=== PATIENT | female | born 1970 | race Caucasian/White ===

== ENCOUNTER 2017-12-29 19:25 | Emergency (ER) | payer BC, OTHER ==
[2017-12-29 19:34] VITALS: BP 123/72
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
== END 2017-12-29 20:10 | disposition home or self-care (01) ==
LOC: ED 19:25
DX: S09.90XA Unspecified injury of head, initial encounter (principal); S16.1XXA Strain of muscle, fascia and tendon at neck level, initial encounter; M54.2 Cervicalgia; R51 Headache; V43.52XA Car driver injured in collision with other type car in traffic accident, initial encounter; Y92.9 Unspecified place or not applicable
CPT/HCPCS: 99282

== ENCOUNTER 2018-09-01 20:59 | Observation (INO) | payer BC, OTHER ==
[2018-09-01] MEDS ORDERED: NS 0.9% 1000 ML** 1,000 ML IV ONE (21:20)
[2018-09-01] MEDS ORDERED: Morphine 4 MG/ML VIAL (1 ml) 4 MG/ML VIAL IV ONE (21:21)
[2018-09-01] MEDS ORDERED: Ondansetron INJ* 2 MG/ML VIAL IV ONE (21:21)
[2018-09-01 21:32] LABS: ABS Basophils 0.1 10^3/ul (0-0.2); ABS Eosinophils 0.2 10^3/ul (0-0.6); ABS Lymphocytes 1.7 10^3/ul (1.0-4.8); ABS Monocytes 1.3 10^3/ul (0-0.8); ABS Neutrophils 8.7 10^3/ul (1.5-7.7); Eosinophil % 1.7 %; Hematocrit 40 % (35-47); Hemoglobin 13.9 g/dL (12.0-16.0); Lymphocyte % 14.6 %; Mean Corpuscular HGB Conc 34 g/dL (31-36); Mean Corpuscular Hemoglobin 32 pg (27-31); Mean Corpuscular Volume 94 fL (80-97); Mean Platelet Volume 7.9 fL (7.4-10.4); Platelet Count 285 10^3/uL (150-450); Red Blood Count 4.31 10^6 /uL (3.70-4.87); Red Cell Distribution Width 14 % (10.5-15); White Blood Count 11.9 10^3/uL (3.5-10.8)
[2018-09-01 21:42] LABS: Albumin 4.2 g/dL (3.2-5.2); Calcium 10.3 mg/dL (8.6-10.3); Potassium 4.6 mmol/L (3.5-5.0); Total Bilirubin 0.7 mg/dL (0.2-1.0)
[2018-09-01 21:48] LABS: Albumin/Globulin Ratio 1.4 (1-3); BUN/Creatinine Ratio 12.7 (8-20); C Reactive Protein 39.71 mg/L (<8.01); EGFR African American 94.4 (>60); Globulin 2.9 g/dL (2-4); Total Protein 7.1 g/dL (6.4-8.9)
[2018-09-01 22:53] LABS: Urine Appearance Clear; Urine Bilirubin Negative (Negative); Urine Blood Negative (Negative); Urine Color Yellow; Urine Glucose Negative (Negative); Urine Ketones 1+ (Negative); Urine Nitrite Negative (Negative); Urine Protein Negative (Negative); Urine Urobilinogen Negative (Negative)
[2018-09-01] MEDS ORDERED: Acetaminophen TAB* 325 MG PO PRN (22:56)
[2018-09-01] MEDS ORDERED: Ondansetron INJ* 2 MG/ML VIAL IV PRN (22:56)
[2018-09-01 22:57] LABS: HCG Pregnancy 0.7 mIU/mL
[2018-09-01] MEDS ORDERED: NS 0.9% 1000 ML** 1,000 ML IV SCH (23:00)
[2018-09-01] MEDS ORDERED: ZOSYN 3.375 GM x ONE DOSE over 30 miuntes IVPB ×2 (23:30)
--- NOTE | 2018-09-01 23:30 | ED ---
Abdominal Pain/Female - HPI Summary HPI Summary: Patient complains of diffuse abdominal pain worse in the upper quadrants 2 days. Pain radiates to right shoulder. Associated with nausea and vomiting and diarrhea. Patient states history of same on 3 prior episodes. Abdominal pain is worse with eating, progressive in pain and duration. Worst 6/10. Denies fever, cough, sore throat, CP, change in urine, vaginal symptoms. Medical history is hypothyroid. Abdominal surgical history is none. Last meal at 3 PM. - History of Current Complaint Chief Complaint: EDAbdPain Stated Complaint: ABD PAIN SINCE THURSDAY PER PT Time Seen by Provider: 09/01/18 21:13 Hx Obtained From: Patient Onset/Duration: Gradual Onset, Lasting Days Timing: Constant Severity Initially: Moderate Severity Currently: Moderate Pain Intensity: 6 Pain Scale Used: 0-10 Numeric Location: Diffuse Radiates to: Other - Shoulder Character: Dull, Cramping Aggravating Factor(s): Food Alleviating Factor(s): Nothing Associated Signs and Symptoms: Positive: Decreased Appetite, Nausea, Vomiting Allergies/Adverse Reactions: Allergies Allergy/AdvReac Type Severity Reaction Status Date / Time No Known Allergies Allergy Verified 12/29/17 19:38 PMH/Surg Hx/FS Hx/Imm Hx Endocrine/Hematology History: Reports: Other Endocrine/Hematological Disorders - hypothyroid Cardiovascular History: Denies: Hx Pacemaker/ICD Respiratory History: Denies: Hx Chronic Obstructive Pulmonary Disease (COPD) History: Denies: Hx Dialysis Sensory History: Denies: Hx Legally Blind Opthamlomology History: Denies: Hx Eye Prosthesis EENT History: Denies: Hx Deafness Neurological History: Denies: Hx Dementia Psychiatric History: Denies: Hx Autism Infectious Disease History: No Infectious Disease History: Denies: Traveled Outside the [place] in Last 30 Days - Family History Known Family History: Negative: Renal Disease, Respiratory Disease - Social History Alcohol Use: None Substance Use Type: Reports: None Smoking Status (MU): Never Smoked Tobacco Review of Systems Constitutional: Negative Eyes: Negative ENT: Negative Cardiovascular: Negative Respiratory: Negative Positive: Abdominal Pain, Vomiting, Diarrhea, Nausea Genitourinary: Negative Musculoskeletal: Negative Skin: Negative Neurological: Negative Psychological: Normal All Other Systems Reviewed And Are Negative: Yes Physical Exam - Summary Physical Exam Summary: Tenderness to palpation in all upper quadrants, worse in right upper quadrant. Positive Wilkerson's. No tenderness to palpation in lower quadrants. Lung sounds clear to auscultation bilaterally. RRR. Triage Information Reviewed: Yes Vital Signs On Initial Exam: Initial Vitals Temp Pulse Resp BP Pulse Ox 97.7 F 104 20 146/95 99 09/01/18 21:02 09/01/18 21:02 09/01/18 21:02 09/01/18 21:02 09/01/18 21:02 Vital Signs Reviewed: Yes Appearance: Positive: Well-Appearing Skin: Positive: Warm Head/Face: Positive: Normal Head/Face Inspection Eyes: Positive: Normal ENT: Positive: Normal ENT inspection Neck: Positive: Supple Respiratory/Lung Sounds: Positive: Clear to Auscultation Cardiovascular: Positive: Normal Abdomen Description: Positive: Other: Musculoskeletal: Positive: Normal Neurological: Positive: Normal Psychiatric: Positive: Normal AVPU Assessment: Alert - Ajo Coma Scale Best Eye Response: 4 - Spontaneous Best Motor Response: 6 - Obeys Commands Best Verbal Response: 5 - Oriented Coma Scale Total: 15 Diagnostics - Vital Signs Vital Signs Temp Pulse Resp BP Pulse Ox 09/01/18 23:00 97 98 09/01/18 22:57 74 137/82 98 09/01/18 22:46 73 138/79 99 09/01/18 22:27 75 153/85 97 09/01/18 22:14 82 147/97 99 09/01/18 22:10 16 09/01/18 22:00 80 99 09/01/18 21:58 76 99 09/01/18 21:57 76 147/96 98 09/01/18 21:02 97.7 F 104 20 146/95 99 - Laboratory Lab Results: Lab Results 09/01/18 09/01/18 09/01/18 Range/Units 21:24 21:24 21:24 WBC 11.9 H (3.5-10.8) 10^3/uL RBC 4.31 (3.70-4.87) 10^6 /uL Hgb 13.9 (12.0-16.0) g/dL Hct 40 (35-47) % MCV 94 (80-97) fL MCH 32 H (27-31) pg MCHC 34 (31-36) g/dL RDW 14 (10.5-15) % Plt Count 285 (150-450) 10^3/uL MPV 7.9 (7.4-10.4) fL Neut % (Auto) 72.6 % Lymph % (Auto) 14.6 % Lon[place] % (Auto) 10.5 % Eos % (Auto) 1.7 % Baso % (Auto) 0.6 % Absolute Neuts (auto) 8.7 H (1.5-7.7) 10^3/ul Absolute Lymphs (auto) 1.7 (1.0-4.8) 10^3/ul Absolute Monos (auto) 1.3 H (0-0.8) 10^3/ul Absolute Eos (auto) 0.2 (0-0.6) 10^3/ul Absolute Basos (auto) 0.1 (0-0.2) 10^3/ul Absolute Nucleated RBC 0.0 10^3/ul Nucleated RBC % 0.0 Sodium 137 (135-145) mmol/L Potassium 4.6 (3.5-5.0) mmol/L Chloride 102 (101-111) mmol/L Carbon Dioxide 27 (22-32) mmol/L Anion Gap 8 (2-11) mmol/L BUN 10 (6-24) mg/dL Creatinine 0.79 (0.51-0.95) mg/dL Est GFR ( Amer) 94.4 (>60) Est GFR (Non-Af Amer) 78.0 (>60) BUN/Creatinine Ratio 12.7 (8-20) Glucose 109 H (70-100) mg/dL Lactic Acid 0.8 (0.5-2.0) mmol/L Calcium 10.3 (8.6-10.3) mg/dL Total Bilirubin 0.70 (0.2-1.0) mg/dL AST 21 (13-39) U/L ALT 29 (7-52) U/L Alkaline Phosphatase 58 (34-104) U/L C-Reactive Protein 39.71 H (<8.01) mg/L Total Protein 7.1 (6.4-8.9) g/dL Albumin 4.2 (3.2-5.2) g/dL Globulin 2.9 (2-4) g/dL Albumin/Globulin Ratio 1.4 (1-3) Lipase 10 L (11.0-82.0) U/L Beta HCG, Quant 0.70 mIU/mL Urine Color Urine Appearance Urine pH (5-9) Ur Specific Gifford (1.010-1.030) Urine Protein (Negative) Urine Ketones (Negative) Urine Blood (Negative) Urine Nitrate (Negative) Urine Bilirubin (Negative) Urine Urobilinogen (Negative) Ur Leukocyte Esterase (Negative) Urine Glucose (Negative) 09/01/18 Range/Units 22:45 WBC (3.5-10.8) 10^3/uL RBC (3.70-4.87) 10^6 /uL Hgb (12.0-16.0) g/dL Hct (35-47) % MCV (80-97) fL MCH (27-31) pg MCHC (31-36) g/dL RDW (10.5-15) % Plt Count (150-450) 10^3/uL MPV (7.4-10.4) fL Neut % (Auto) % Lymph % (Auto) % Lon[place] % (Auto) % Eos % (Auto) % Baso % (Auto) % Absolute Neuts (auto) (1.5-7.7) 10^3/ul Absolute Lymphs (auto) (1.0-4.8) 10^3/ul Absolute Monos (auto) (0-0.8) 10^3/ul Absolute Eos (auto) (0-0.6) 10^3/ul Absolute Basos (auto) (0-0.2) 10^3/ul Absolute Nucleated RBC 10^3/ul Nucleated RBC % Sodium (135-145) mmol/L Potassium (3.5-5.0) mmol/L Chloride (101-111) mmol/L Carbon Dioxide (22-32) mmol/L Anion Gap (2-11) mmol/L BUN (6-24) mg/dL Creatinine (0.51-0.95) mg/dL Est GFR ( Amer) (>60) Est GFR (Non-Af Amer) (>60) BUN/Creatinine Ratio (8-20) Glucose (70-100) mg/dL Lactic Acid (0.5-2.0) mmol/L Calcium (8.6-10.3) mg/dL Total Bilirubin (0.2-1.0) mg/dL AST (13-39) U/L ALT (7-52) U/L Alkaline Phosphatase (34-104) U/L C-Reactive Protein (<8.01) mg/L Total Protein (6.4-8.9) g/dL Albumin (3.2-5.2) g/dL Globulin (2-4) g/dL Albumin/Globulin Ratio (1-3) Lipase (11.0-82.0) U/L Beta HCG, Quant mIU/mL Urine Color Yellow Urine Appearance Clear Urine pH 5.0 (5-9) Ur Specific Gifford 1.010 (1.010-1.030) Urine Protein Negative (Negative) Urine Ketones 1+ A (Negative) Urine Blood Negative (Negative) Urine Nitrate Negative (Negative) Urine Bilirubin Negative (Negative) Urine Urobilinogen Negative (Negative) Ur Leukocyte Esterase Negative (Negative) Urine Glucose Negative (Negative) Result Diagrams: 09/01/18 21:24 09/01/18 21:24 Lab Statement: Any lab studies that have been ordered have been reviewed, and results considered in the medical decision making process. Abdominal Pain Fem Course/Dx - Course Course Of Treatment: Patient complains of diffuse abdominal pain worse in the upper quadrants 2 days. Pain radiates to right shoulder. Associated with nausea and vomiting and diarrhea. Patient states history of same on 3 prior episodes. Abdominal pain is worse with eating, progressive in pain and duration. Worst 6/10. Denies fever, cough, sore throat, CP, change in urine, vaginal symptoms. Medical history is hypothyroid. Abdominal surgical history is none. Last meal at 3 PM. Physical exam:Tenderness to palpation in all upper quadrants, worse in right upper quadrant. Positive Wilkerson's. No tenderness to palpation in lower quadrants. Lung sounds clear to auscultation bilaterally. RRR. Vital signs within normal limits. WBC 11.9. Labs otherwise unremarkable. Ultrasound gallbladder positive for cholecystitis. Admitted to surgery Dr. Guevara. - Diagnoses Provider Diagnoses: Cholecystitis Discharge - Sign-Out/Discharge Documenting (check all that apply): Patient Departure Patient Received Moderate/Deep Sedation with Procedure: No - Discharge Plan Condition: Stable Disposition: ADMITTED TO [facility] - Billing Disposition and Condition Condition: STABLE Disposition: Admitted to [facility]
[2018-09-02] MEDS: HYDROmorphone INJ1* 1 MG/ML SYRINGE IV SLOW PU PRN ×5 (01:00→20:08)
[2018-09-02] MEDS: Piperacillin/Tazobactam VIAL*) 3.375 GM in NS 0.9% 100 ML* 100 ML IVPB SCH ×3 (03:57→20:03)
[2018-09-02] MEDS: Levothyroxine TAB* 125 MCG TAB PO SCH ×2 (05:38→08:48)
[2018-09-02] MEDS: Venlafaxine EXT RELEASE CAP* 75 MG PO SCH (08:31)
--- NOTE | 2018-09-02 11:00 | HP ---
AMENDED REPORT NOW INCLUDES DESIGNATED COSIGNER CC: Roberto Dover * DATE OF ADMISSION: 09/01/2018. ATTENDING SURGEON: Dr. Christiano Guevara * (THERON Hanks dictating). CHIEF COMPLAINT: Abdominal pain. HISTORY OF PRESENT ILLNESS: This is a 48-year-old female with onset of upper abdominal pain beginning Thursday evening. She had had some nachos with cheese and jalapenos earlier in the day. She describes pain across her upper abdomen with a bloating and gas-like sensation. There was associated nausea and vomiting times one. She has also felt some fevers and chills. She tossed and turned Thursday night, but was able to go to work Thursday, though left early. Discomfort persisted through Thursday night and then on Thursday pain peaked after she took her usual Effexor with water. Pain level has been as high as 10/ 10, but currently between 6 and 7/10. She has not had any prior similar symptoms. She has not had any prior abdominal surgeries. She has noted some diarrhea over the past couple of weeks that preceded the current symptoms. She has not noticed any particular change in the color of her urine or stool, other than urine being more concentrated. There is no known family history of gallbladder disease, other than an aunt. PAST MEDICAL HISTORY: Anxiety and depression; hypothyroids, on replacement; she also states that she had jaundice secondary to cholestasis of which resolved after delivery. PAST SURGICAL HISTORY: [place] teeth extraction. CURRENT MEDICATIONS: 1. Effexor 150 mg once daily. 2. Levothyroxine 125 mcg once daily. DRUG ALLERGIES: None known. FAMILY HISTORY: Negative for anesthesia problems, bleeding or clotting disorders. SOCIAL HISTORY: The patient is . She is employed as an artist. She denies significant smoking history. She drinks two to three alcoholic drinks per month. She rarely uses any recreational drugs, including marijuana. REVIEW OF SYSTEMS: General: No other acute illness, other than per the HPI. She states that she had intentional weight loss a year or two ago of about 55 pounds which she has maintained. HEENT: No problems reported. Cardiovascular : No chest pain, palpitations or history of heart murmur. Respiratory: No history of asthma, chronic cough, or shortness of breath. GI: As above per HPI , no additions. : No dysuria or hematuria. Endocrine: No diabetes. She is on thyroid replacement. Remainder of review of systems is negative. PHYSICAL EXAMINATION GENERAL: Well-nourished, obese female in mild distress. SKIN: Warm and dry. No suspicious rashes or lesions. VITAL SIGNS: Height 5'3", weight 205 pounds, BMI 36. Temperature 98.3, blood pressure 131/73, pulse 72, respirations 16, room air saturation 95 percent. HEENT: Pupils are equal and round, reactive. EOM's intact. No conjunctival pallor or scleral icterus. Oropharynx: Mucus membranes slightly dry. No intraoral lesions. Teeth in good report. NECK: No lymphadenopathy, thyromegaly, or masses. LUNGS: Clear to auscultation with no rales or wheezes. HEART: Regular rate and rhythm. No murmur noted. ABDOMEN: Bowel sounds are present. Abdomen is obese and soft with moderate tenderness in the right mid abdomen with maximum tenderness in the right upper quadrant. No peritoneal signs. No palpable masses or organomegaly, though exam is limited by body habitus and level of tenderness. EXTREMITIES: No edema. GENITALIA: Not done. RECTAL: Not done. NEUROLOGIC: Grossly intact. LABORATORY DATA: White blood cell count 11,900 with normal differential, hemoglobin 13.9; lactic acid is normal at 0.8, CRP elevated at 40, lipase is normal, as are liver function tests, hCG is negative. Ultrasound showed a 3.4 x 2.5 x 2.8 cm stone in the neck of the gallbladder with sludge as well. Gallbladder wall was measured at 5 mm. Common bile duct was normal in diameter. IMPRESSION: Cholelithiasis with acute cholecystitis. PLAN: The patient was begun on IV Zosyn upon admission. Plan is for laparoscopic cholecystectomy pending OR availability, likely today. The case was discussed with Dr. Herrera and also Dr. Jorge who will likely be the operative surgeon. THERON HANKS [id number]/[facility] #: [id number] G[facility]NET HEALTHDoug
[2018-09-02] MEDS ORDERED: Ondansetron INJ* 2 MG/ML VIAL ONE ×2 (11:50→12:58)
[2018-09-02] MEDS ORDERED: Bupivacaine 0.25% SDV PF* 10 ML VIAL INJ ONE (12:04)
--- NOTE | 2018-09-02 12:34 | PN ---
Progress Note - Progress Note Date of Service: 09/02/18 Note: Surgery Progress Note Please see full H&P dictated by Alfredo Miller. Briefly, patient is a 48 yo F with RUQ abdominal pain for 4 days who presented to the ED last night and was found to have a WBC 11 and US consistent with acute cholecystitis. I discussed the risks, benefits and alternatives of surgery which will be a laparoscopic, possible open cholecystectomy. Risks include but are not limited to bleeding ( which in rare circumstances can require blood transfusion or reoperation), infection (wound, intraabdominal), injury to nearby structures such as the stomach, small bowel, colon, liver and common bile duct. Injury to such structures can require reoperation and further procedures. Other risks include bile leak and anesthetic/perioperative risks. She understands and wishes to proceed.
[2018-09-02] MEDS ORDERED: fentaNYL* 50 MCG/ML 2 ML VIAL (100 MCG VIAL) ONE ×2 (12:43→15:48)
[2018-09-02] MEDS ORDERED: Midazolam* 1 MG/ML 2 ML VIAL (2 MG) ONE (12:43)
[2018-09-02] MEDS ORDERED: Lidocaine 2% PF * 5 ML VIAL ONE (12:58)
[2018-09-02] MEDS ORDERED: Dexamethasone IV* 4 MG/ML 1 ML (4 MG) ONE (12:58)
[2018-09-02] MEDS ORDERED: Succinylcholine* 20 MG/ML 10 ML VIAL ONE (12:58)
[2018-09-02] MEDS ORDERED: Propofol* 10 MG/ML 20 ML BTL ONE (12:58)
[2018-09-02] MEDS ORDERED: Cisatracurium* 2 MG/ML MDV 5 ML ONE (13:12)
[2018-09-02] MEDS ORDERED: Ketorolac INJ* 30 MG/ML 1 ML VIAL ONE (15:29)
[2018-09-02] MEDS ORDERED: Metoclopramide IV* 5 MG/ML 2 ML VIAL ONE (15:29)
[2018-09-02] MEDS ORDERED: Neostigmine Methylsulfate* 1 MG/ML 10 ML VIAL (1 mg/ml) ONE (15:31)
[2018-09-02] MEDS ORDERED: Glycopyrrolate IV* 0.2 MG/ML 1 ML VIAL ONE (15:31)
[2018-09-02] MEDS ORDERED: Phenylephrine 40 MCG/ML SYRINGE ONE (15:33)
[2018-09-02] MEDS ORDERED: DiMENhydriNATE IV* 50 MG/ML VIAL IV PUSH PRN (15:37)
[2018-09-02] MEDS ORDERED: Naloxone* 0.4 MG/ML 1 ML VIAL IV PRN (15:37)
[2018-09-02] MEDS ORDERED: oxyCODONE TAB* 5 MG TAB PO PRN (15:37)
[2018-09-02] MEDS ORDERED: HYDROmorphone INJ1* 1 MG/ML SYRINGE IV PRN (15:37)
[2018-09-02] MEDS ORDERED: D5W 1/2 NS KCl 20 Meq 1000 ML* 1,000 ML IV SCH (16:00)
[2018-09-02] MEDS ORDERED: Propofol* 500 MG/50 ML BTL ONE (16:02)
--- NOTE | 2018-09-02 21:43 | OP ---
DATE OF OPERATION: 09/01/18 - ROOM #339 DATE OF : 72 SERVICE: General Surgery. ATTENDING SURGEON: Pat Jorge MD CAKE MAKER: Kika Rangel NP ANESTHESIOLOGISTS: Dr. Qi Kemp and Dr. Ana Camacho. ANESTHESIA: General endotracheal anesthesia. PRE-OP DIAGNOSIS: Acute cholecystitis. POST-OP DIAGNOSIS: Acute cholecystitis. OPERATIVE PROCEDURE: Laparoscopic cholecystectomy. ESTIMATED BLOOD LOSS: Approximately 50 cc. SPECIMEN: Gallbladder. INDICATIONS FOR SURGERY: Ms. Norton is a 48-year-old female with a history of hypothyroidism, who presented to the emergency room with 4 days of right upper quadrant abdominal pain. She was found to have a white blood cell count of 11 and a right upper quadrant ultrasound consistent with acute cholecystitis. She was admitted to the surgical service, placed on antibiotics, and given informed consent for a laparoscopic possible open cholecystectomy. She understood the risks, benefits, and alternatives of procedure and she wished to proceed. DESCRIPTION OF PROCEDURE: The patient was brought back to the operating room and placed on the operating table in the supine position. Sequential compression devices were placed on the bilateral lower extremities for DVT prophylaxis. Antibiotic with Zosyn was administered prior to incision. General endotracheal anesthesia was induced. The patient's abdomen was prepped and draped in normal sterile fashion and the left arm was tucked. Prior to beginning the procedure, a time-out was performed verifying the patient's name, MR number, and the procedure to be performed. Next, local anesthesia was administered to the left upper quadrant. A Veress needle was placed into the left upper quadrant at Michael's point and a saline drop test was performed, which was satisfactory. Therefore, the abdomen was then insufflated and after initial period of insufflation, the insufflation stopped and the pressures were high with no flow. It was likely that the Veress needle had been dislodged into the abdominal wall. Therefore, it was removed and replaced; however, it was difficult to again obtain an appropriate saline drop test, so decision was made to enter the abdomen using the Optiview technique in the right upper quadrant. Local anesthesia was administered in the right upper quadrant. A small incision was made and then using an optical trocar, the abdomen was entered under direct visualization. All the abdominal wall layers were visualized; and then, once the abdomen was entered, an insufflation was obtained to 15 mmHg. Upon general inspection of the abdominal cavity, there was no apparent injury that had been made upon entering into the right upper quadrant. Examination of the left upper quadrant showed no injury in the left upper quadrant and it was likely that the Veress needle site has been dislodged in the abdominal wall. Therefore, the remaining trocars were placed under direct visualization. A 5-mm trocar was placed above the umbilicus after administering 0.5% Marcaine with local anesthesia. A 12-mm trocar was placed just to the right falciform and an additional 5 mm trocar was placed in the right mid abdomen. The patient was positioned head up and right side up. The gallbladder was noticed to be extremely enlarged, dilated and difficult to grasp. Therefore, the gallbladder was aspirated and approximately 30 cc of dark bilious fluid was removed. The gallbladder became less taut and was able to be grasped. It was grasped at the fundus and lifted up and over the liver with great difficulty given again how large, long and distended it was. There was a very large stone that had been seen on the preoperative ultrasound that was lodged in the infundibulum, but with great care, the infundibulum was grasped and elevated. The peritoneum on either side of the gallbladder was opened with some difficulty, given again how long the gallbladder was and how extended off of the liver for many centimeters. There was a node of Calot that was identified. The cystic artery was noted to be very anterior and eventually the critical view was obtained. The cystic artery was divided using 2 clips distally, and 1 clip proximally, and the cystic duct was also identified and it was posterior, and 2 clips were placed distally, 1 proximally, and then both of these structures were divided. Once this was done, the gallbladder was taken off of the liver with electrocautery and placed into an EndoCatch bag. It was removed from the 12 mm trocar site, which had to be extended quite a bit. After it was removed from the abdominal cavity, the right upper quadrant was irrigated. Hemostasis was obtained at the liver bed and the clips were noted to be in place on the cystic duct and cystic artery, and once this was confirmed, the elongated 12 mm trocar site was closed using interrupted 0 Vicryl sutures in a [id number] fashion; and after this was done, all the trocars were removed under direct visualization. Desufflation was obtained. The skin incisions were closed using 4-0 Monocryl sutures. Sterile dressing was in place and the patient's anesthesia was reversed and she was taken to the PACU in stable condition. At the end of the case, all counts were correct and I was present during the entirety of the case. [id number]/[facility] #: [id number] MTDD
[2018-09-03] MEDS: HYDROmorphone INJ1* 1 MG/ML SYRINGE IV SLOW PU PRN ×2 (01:39→08:37)
[2018-09-03] MEDS: Piperacillin/Tazobactam VIAL*) 3.375 GM in NS 0.9% 100 ML* 100 ML IVPB SCH (04:02)
[2018-09-03] MEDS: Levothyroxine TAB* 125 MCG TAB PO SCH (06:12)
[2018-09-03 07:26] VITALS: BP 113/62
[2018-09-03] MEDS: Venlafaxine EXT RELEASE CAP* 75 MG PO SCH (08:37)
--- NOTE | 2018-09-03 08:50 | PN ---
Progress Note - Progress Note Date of Service: 09/03/18 Note: Surgery Progress Note S: Patient feels better today than before surgery. She has pain but it is much improved since before surgery. No nausea or emesis. Has been ambulating independently. Tolerated CLD. O: Vital Signs - 24 hr 09/02/18 09/02/18 09/02/18 08:51 16:01 16:05 Temperature 99.1 F Pulse Rate 104 104 Respiratory 18 24 24 Rate Blood Pressure (mmHg) O2 Sat by Pulse 88 87 Oximetry 09/02/18 09/02/18 09/02/18 16:10 16:15 16:20 Temperature Pulse Rate 101 105 105 Respiratory 18 25 16 Rate Blood Pressure (mmHg) O2 Sat by Pulse 93 94 95 Oximetry 09/02/18 09/02/18 09/02/18 16:25 16:30 16:35 Temperature Pulse Rate 104 98 101 Respiratory 16 18 18 Rate Blood Pressure (mmHg) O2 Sat by Pulse 95 95 96 Oximetry 09/02/18 09/02/18 09/02/18 16:40 16:51 17:00 Temperature 97.9 F Pulse Rate 88 98 97 Respiratory 20 16 16 Rate Blood Pressure 131/81 (mmHg) O2 Sat by Pulse 97 95 94 Oximetry 09/02/18 09/02/18 09/02/18 17:01 17:16 17:47 Temperature 97.8 F Pulse Rate 98 91 90 Respiratory 18 17 16 Rate Blood Pressure 121/79 113/84 141/71 (mmHg) O2 Sat by Pulse 94 94 99 Oximetry 09/02/18 09/02/18 09/02/18 18:29 19:30 20:00 Temperature 99 F 98.8 F Pulse Rate 102 97 Respiratory 16 18 18 Rate Blood Pressure 150/66 147/71 (mmHg) O2 Sat by Pulse 98 95 Oximetry 09/02/18 09/02/18 09/02/18 20:08 21:08 21:33 Temperature 99 F Pulse Rate 98 Respiratory 20 16 16 Rate Blood Pressure 127/64 (mmHg) O2 Sat by Pulse 96 Oximetry 09/02/18 09/03/18 09/03/18 23:26 01:39 02:45 Temperature 98.3 F Pulse Rate 102 Respiratory 16 20 20 Rate Blood Pressure 116/64 (mmHg) O2 Sat by Pulse 97 Oximetry 09/03/18 09/03/18 09/03/18 03:35 07:25 08:37 Temperature 98.5 F 98.7 F Pulse Rate 77 76 Respiratory 18 16 16 Rate Blood Pressure 123/61 113/62 (mmHg) O2 Sat by Pulse 95 97 Oximetry Levothyroxine TAB* [Synthroid TAB*] 125 mcg PO 0800 12/29/17 [History Confirmed 09/01/18] Venlafaxine CAP (NF) [Effexor CAP (NF)] 150 mg PO DAILY 12/29/17 [History Confirmed 09/01/18] Intake & Output 09/02/18 09/03/18 09/03/18 22:59 06:59 14:59 Intake Total 1310 470 Output Total 700 1000 Balance 610 -530 Intake: IV Fluids 1000 lr 1000 Oral 310 470 Output: Urine 700 1000 Other: # Bowel Movements 0 No new labs Physical exam: Abd: soft, non distended, incisions c/d/i, minimally tender A/P: 48 F POD 1 from lap janae for acute cholecystitis, doing well. - Soft diet - D/C today, return precautions discussed. Patient to follow up with me in 2-3 weeks for post operative appointment
[2018-09-03] MEDS ORDERED: oxyCODONE/Acetamin 5/325 MG* TAB PO PRN ×2 (10:28)
--- NOTE | 2018-09-03 12:31 | DS ---
CC: Roberto Dover * DISCHARGE SUMMARY: DATE OF ADMISSION: 09/01/18 DATE OF DISCHARGE: 09/03/18 ATTENDING PROVIDER: Dr. Jorge * (DICTATED BY THERON FOSTER) HOSPITAL COURSE: Please refer to admission history and physical and operative note for details. The patient was admitted on 09/01/18 with acute cholecystitis and cholelithiasis. She was given IV antibiotics and plans were made for surgery. She was taken to the operating room on 09/02/18, at which time she underwent laparoscopic cholecystectomy with Dr. Jorge. See operative report for details. She was seen in the morning of postoperative day [address] Jorge and myself. She is doing well with pain under good control and tolerating oral diet. She is deemed ready for discharge (see separate note from Dr. Jorge). She will resume her usual home medications. Prescription for Percocet was e- sent to the [facility] outpatient pharmacy. Instructions were reviewed regarding wound care, diet, and activity. She has a followup with our office on 09/10/18. She is discharged to home in good condition. THERON FOSTER [id number]/[facility] #: [id number] [place]OW[place]
== END 2018-09-03 11:50 | disposition home or self-care (01) ==
LOC: ED 20:59 → SSU 22:56
PROVIDERS: ADMIT Surgery; ATTEND Surgery
PROC: 0FT44ZZ Resection of Gallbladder, Percutaneous Endoscopic Approach (ICD-10-PCS; principal; 2018-09-01)
DX: K80.00 Calculus of gallbladder with acute cholecystitis without obstruction (principal); F41.9 Anxiety disorder, unspecified; F32.9 Major depressive disorder, single episode, unspecified; E03.9 Hypothyroidism, unspecified; Z79.899 Other long term (current) drug therapy; Z79.890 Hormone replacement therapy
CPT/HCPCS: 36415; 76705; 80053; 81003; 83605; 83690; 84702; 85025; 86140; 88304; 96361; 96365; 96366; 96375; 96376; 99283; A9270-GY; G0378; J0330; J1100; J1170; J1885; J2250; J2270; J2405; J2543; J2704; J2710; J2765; J3010; J3490

== ENCOUNTER 2021-11-12 08:08 | Inpatient (IN) ==
[~2021-11-12 08:08] MED LIST: Buffered Lidocaine 1% SYRIN 1 ml INTRADERM ONE; Lactated Ringers 1000 ml BAG 1,000 ML IV SCH; Naloxone 0.4 mg VIAL 0.4 mg/ml 1 ml VIAL IV PRN; Prochlorperazine 5 mg/ml 2 ml VIAL (10 mg) IV PRN; ceFAZolin 2 GM PREMIX 2 GM/50 ML BAG ONE
[2021-11-12] MEDS ORDERED: Propofol 10 MG/ML 20 ML BTL ONE ×2 (08:18→14:16)
[2021-11-12] MEDS ORDERED: Buffered Lidocaine 1% SYRIN 1 ml INTRADERM ONE (08:26)
[2021-11-12 09:01] LABS: Rapid COVID-19 Molecular Undetected (Undetected)
[2021-11-12] MEDS ORDERED: ROPIVACAINE 5 MG/ML 30 ML BTL (0.5%) ONE ×2 (09:08→09:56)
[2021-11-12] MEDS ORDERED: Propofol 10 mg/ml 100 ML BTL 0 ML ONE (09:18)
[2021-11-12] MEDS ORDERED: Lidocaine 2% PF 5 ML VIAL ONE (09:45)
[2021-11-12] MEDS ORDERED: Rocuronium 50 mg VIAL 10 mg/ml 5 ml VIAL (50 mg) ONE (09:45)
[2021-11-12] MEDS ORDERED: Midazolam 2 mg/2 ml VIAL 1 mg/ml 2 ml VIAL (2 mg) ONE (11:14)
[2021-11-12] MEDS ORDERED: Ondansetron 4 mg VIAL 2 MG/ML 2 ml VIAL ONE (11:14)
[2021-11-12] MEDS ORDERED: Dexamethasone IV 4 MG/ML VIAL 1 ml VIAL ONE (11:14)
[2021-11-12] MEDS ORDERED: fentaNYL 100 mcg/2 ml 50 MCG/ML VIAL ONE (11:14)
[2021-11-12] MEDS ORDERED: HYDROmorphone 0.5 MG/0.5 ML SYRINGE ONE ×2 (11:47→12:22)
[2021-11-12] MEDS ORDERED: Lactulose 30 ml UDC PO PRN (12:40)
[2021-11-12] MEDS ORDERED: Ondansetron ODT 4 mg TAB 4 MG TAB PO PRN (12:40)
[2021-11-12] MEDS ORDERED: Morphine 2 MG/ML SYRINGE IV PRN (12:40)
[2021-11-12] MEDS ORDERED: Magnesium Hydroxide LIQ 30 ML UDC PO PRN (12:40)
[2021-11-12] MEDS ORDERED: Ondansetron 4 mg VIAL 2 MG/ML 2 ml VIAL IV PRN (12:40)
[2021-11-12] MEDS ORDERED: HYDROmorphone 1 MG/1 ML SYRINGE ONE (14:38)
[2021-11-12] MEDS: HYDROmorphone 1 MG/1 ML SYRINGE IV PRN ×4 (14:39→15:25)
[2021-11-12] MEDS: Lactated Ringers 1000 ml BAG 1,000 ML IV SCH (16:13)
[2021-11-12] MEDS: ceFAZolin 1 GM ADVAN 1 GM in NS 0.9% 50 ML 50 ML IVPB SCH (20:13)
[2021-11-12] MEDS: Magnesium Hydroxide LIQ 30 ML UDC PO SCH (20:53)
[2021-11-13] MEDS: Lactated Ringers 1000 ml BAG 1,000 ML IV SCH (03:10)
[2021-11-13] MEDS: ceFAZolin 1 GM ADVAN 1 GM in NS 0.9% 50 ML 50 ML IVPB SCH ×2 (03:15→11:12)
[2021-11-13 05:53] LABS: Hematocrit 33 % (35-47); Hemoglobin 11.4 g/dL (12.0-16.0); Mean Platelet Volume 7.9 fL (7.4-10.4); Platelet Count 243 10^3/uL (150-450)
[2021-11-13 06:04] LABS: Calcium 8.8 mg/dL (8.6-10.3); Potassium 3.9 mmol/L (3.5-5.0); eGFR CKD-EPI 98.5 (>60)
[2021-11-13] MEDS: Magnesium Hydroxide LIQ 30 ML UDC PO SCH (08:50)
[2021-11-13] MEDS ORDERED: Venlafaxine XR 75 mg PO SCH (09:00)
[2021-11-13] MEDS ORDERED: Vitamin THERAPEUTIC TAB PO SCH (09:00)
[2021-11-13] MEDS ORDERED: Venlafaxine 75 mg CAP (NF) PO SCH ×2 (09:00)
[2021-11-13 11:04] VITALS: BP 130/83
[2021-11-13] MEDS ORDERED: Morphine ER 15 mg TAB ** extended release PO SCH (17:00)
== END 2021-11-13 15:25 | disposition home health service (06) | DRG 302 ==
LOC: INTOOBSV 08:08 → AA 08:08 → SSU 12:40
PROVIDERS: ADMIT Orthopaedic Surgery Adult Reconstructive Orthopaedic Surgery; ATTEND Orthopaedic Surgery Adult Reconstructive Orthopaedic Surgery

== ENCOUNTER 2022-06-09 10:00 | Observation (INO) ==
[~2022-06-09 10:00] MED LIST changes: +Acetaminophen IV 1 GM/100ML 1,000 MG/100 ML BAG IV ONE; +Chlorhexidine MOUTHWASH 0.12% 15 ML UDC ONE; -Prochlorperazine 5 mg/ml 2 ml VIAL (10 mg) IV PRN; -ceFAZolin 2 GM PREMIX 2 GM/50 ML BAG ONE; +fentaNYL 100 mcg/2 ml 50 MCG/ML VIAL IV PRN
[2022-06-09] MEDS ORDERED: ceFAZolin 2 GM in NS PREMIX 2 GM/100 ML BAG IVPB ONE (10:48)
[2022-06-09] MEDS ORDERED: Gelfoam Sponge SIZE 100 SPONGE ONE (10:55)
[2022-06-09] MEDS ORDERED: Ondansetron 4 mg VIAL 2 MG/ML 2 ml VIAL ONE (10:55)
[2022-06-09] MEDS ORDERED: Propofol 10 MG/ML 20 ML BTL ONE (10:55)
[2022-06-09] MEDS ORDERED: ceFAZolin VIAL VIAL ONE (10:55)
[2022-06-09] MEDS ORDERED: Thrombin 5,000 UNITS 1 APPLIC KIT - topical use - TOPICAL ONE (10:55)
[2022-06-09] MEDS ORDERED: Metoclopramide 5 MG/ML VIAL (10 mg) ONE (10:55)
[2022-06-09] MEDS ORDERED: Dexamethasone IV 4 MG/ML VIAL 1 ml VIAL ONE (10:55)
[2022-06-09] MEDS ORDERED: Lidocaine 1% w EPI 1:200,000 SDV 30 ML VIAL ONE (10:55)
[2022-06-09] MEDS ORDERED: fentaNYL 250 mcg/5 ml 50 MCG/ML 5 ml VIAL (250 MCG) ONE (10:56)
[2022-06-09] MEDS ORDERED: HYDROmorphone 0.5 MG/0.5 ML SYRINGE ONE (10:56)
[2022-06-09] MEDS ORDERED: Rocuronium 50 mg VIAL 10 mg/ml 5 ml VIAL (50 mg) ONE (10:56)
[2022-06-09] MEDS ORDERED: Magnesium Hydroxide LIQ 30 ML UDC PO PRN (15:05)
[2022-06-09] MEDS ORDERED: Ondansetron 4 mg VIAL 2 MG/ML 2 ml VIAL IV PRN (15:05)
[2022-06-09] MEDS ORDERED: HYDROmorphone 1 MG/1 ML SYRINGE ONE (15:23)
[2022-06-09] MEDS ORDERED: HYDROcodone/ACETAMIN 5/325 mg TAB ONE ×2 (15:23→15:27)
[2022-06-09] MEDS: HYDROcodone/ACETAMIN 5/325 mg TAB PO PRN ×2 (15:27→20:25)
[2022-06-09] MEDS: HYDROmorphone 1 MG/1 ML SYRINGE IV PRN ×2 (15:28→15:41)
[2022-06-09] MEDS ORDERED: fentaNYL 100 mcg/2 ml 50 MCG/ML VIAL ONE (15:58)
[2022-06-09] MEDS: Lactated Ringers 1000 ml BAG 1,000 ML IV SCH (17:54)
[2022-06-10] MEDS: HYDROcodone/ACETAMIN 5/325 mg TAB PO PRN ×2 (06:02→11:56)
[2022-06-10] MEDS: Lactated Ringers 1000 ml BAG 1,000 ML IV SCH (07:40)
[2022-06-10 07:44] VITALS: BP 105/61
[2022-06-10] MEDS ORDERED: Venlafaxine XR 75 mg PO SCH ×2 (09:00)
[2022-06-10] MEDS ORDERED: Venlafaxine 75 mg CAP (NF) PO SCH (09:00)
== END 2022-06-10 12:00 | disposition home or self-care (01) ==
LOC: OR 10:00 → SSU 10:00
PROVIDERS: ADMIT Neurological Surgery; ATTEND Neurological Surgery

== ENCOUNTER 2024-01-28 07:07 | Observation (INO) ==
[~2024-01-28 07:07] MED LIST changes: -Acetaminophen IV 1 GM/100ML 1,000 MG/100 ML BAG IV ONE; -Buffered Lidocaine 1% SYRIN 1 ml INTRADERM ONE; -Chlorhexidine MOUTHWASH 0.12% 15 ML UDC ONE; -Lactated Ringers 1000 ml BAG 1,000 ML IV SCH; +Ondansetron 4 mg VIAL 2 MG/ML 2 ml VIAL IV PRN; -fentaNYL 100 mcg/2 ml 50 MCG/ML VIAL IV PRN
[2024-01-28] MEDS ORDERED: Rocuronium 50 mg VIAL 10 mg/ml 5 ml VIAL (50 mg) ONE ×2 (07:11→10:49)
[2024-01-28] MEDS ORDERED: Lidocaine 2% PF 5 ML VIAL ONE (07:50)
[2024-01-28] MEDS ORDERED: Propofol 0 MG/0 ML BTL ONE (07:50)
[2024-01-28] MEDS ORDERED: fentaNYL 250 mcg/5 ml 50 MCG/ML 5 ml VIAL (250 MCG) ONE (07:51)
[2024-01-28] MEDS ORDERED: Dexamethasone IV 4 MG/ML VIAL 1 ml VIAL ONE ×2 (07:51→08:51)
[2024-01-28] MEDS ORDERED: Ondansetron 4 mg VIAL 2 MG/ML 2 ml VIAL ONE (07:51)
[2024-01-28] MEDS ORDERED: Midazolam 2 mg/2 ml VIAL 1 mg/ml 2 ml VIAL (2 mg) ONE ×3 (07:51→08:06)
[2024-01-28] MEDS ORDERED: Tranexamic Acid 1 GM/100ML BAG 2,000 MG/200 ML BAG IV ONE (08:03)
[2024-01-28] MEDS ORDERED: ceFAZolin 2 GM PREMIX 2 GM/50 ML BAG ONE (08:03)
[2024-01-28 08:12] LABS: Rapid COVID-19 Molecular Undetected (Undetected)
[2024-01-28] MEDS: Lactated Ringers 1000 ml BAG 1,000 ML IV SCH ×2 (08:16→15:55)
[2024-01-28] MEDS: Acetaminophen IV 1 GM/100ML 1,000 MG/100 ML BAG IV ONE (08:16)
[2024-01-28] MEDS: Scopolamine 1 mg/72hr PATCH TRANSDERM ONE (08:16)
[2024-01-28] MEDS: Buffered Lidocaine 1% SYRIN 1 ml INTRADERM ONE (08:16)
[2024-01-28] MEDS ORDERED: Dexmedetomidine 200 mcg/2 ml 2 ml VIAL (200 mcg) ONE (08:46)
[2024-01-28] MEDS ORDERED: Propofol 10 MG/ML 20 ML BTL ONE (08:48)
[2024-01-28] MEDS ORDERED: Midazolam 5 mg/5 ml VIAL 1 mg/ml 5 ml VIAL (5 mg) ONE (08:51)
[2024-01-28] MEDS ORDERED: fentaNYL 100 mcg/2 ml 50 MCG/ML VIAL ONE ×3 (08:51→12:49)
[2024-01-28] MEDS ORDERED: ROPIVACAINE 5 MG/ML 30 ML BTL (0.5%) ONE ×2 (08:51→09:32)
[2024-01-28] MEDS ORDERED: HYDROmorphone 0.5 MG/0.5 ML SYRINGE ONE (11:31)
[2024-01-28] MEDS ORDERED: Lactulose 30 ml UDC PO PRN (12:43)
[2024-01-28] MEDS ORDERED: Calcium Carb (TUMS) 500 mg CHEW TAB PO PRN (12:43)
[2024-01-28] MEDS ORDERED: Magnesium Hydroxide LIQ 30 ML UDC PO PRN (12:43)
[2024-01-28] MEDS ORDERED: Ondansetron ODT 4 mg TAB 4 MG TAB PO PRN (12:43)
[2024-01-28] MEDS ORDERED: Ondansetron 4 mg VIAL 2 MG/ML 2 ml VIAL IV PRN (12:43)
[2024-01-28] MEDS ORDERED: Morphine 2 MG/ML SYRINGE IV PRN (12:43)
[2024-01-28] MEDS: fentaNYL 100 mcg/2 ml 50 MCG/ML VIAL IV PRN (12:50)
[2024-01-28] MEDS ORDERED: HYDROmorphone 1 MG/1 ML SYRINGE ONE (13:11)
[2024-01-28] MEDS: HYDROmorphone 1 MG/1 ML SYRINGE IV PRN (13:34)
[2024-01-28] MEDS: ceFAZolin 2 GM PREMIX 2 GM/50 ML BAG IV SCH (17:35)
[2024-01-28] MEDS: Magnesium Hydroxide LIQ 30 ML UDC PO SCH (20:46)
[2024-01-29 06:29] LABS: Hematocrit 31.6 % (35-45); Hemoglobin 10.9 g/dL (11.5-14.3); Mean Platelet Volume 7.9 fL (7.5-11.2); Platelet Count 248 10^3/uL (150-450)
[2024-01-29 06:46] LABS: Calcium 8.5 mg/dL (8.6-10.3); Creatinine, Serum 0.68 mg/dL (0.51-0.95); eGFR CKD-EPI 104.7 (>60)
[2024-01-29] MEDS: Venlafaxine XR 75 mg PO SCH ×2 (08:15)
[2024-01-29] MEDS: Vitamin THERAPEUTIC TAB PO SCH (08:17)
[2024-01-29 10:11] VITALS: BP 102/68
== END 2024-01-29 13:50 | disposition home or self-care (01) ==
LOC: OR 07:07 → SSU 07:07
PROVIDERS: ADMIT Orthopaedic Surgery Adult Reconstructive Orthopaedic Surgery; ATTEND Orthopaedic Surgery Adult Reconstructive Orthopaedic Surgery